=== PATIENT | male | born 1995 | race Caucasian/White ===

== ENCOUNTER → 2021-06-08 11:44 | Outpatient (CLI) | payer OTHER, SELFPAY ==
--- NOTE | 2021-06-08 | DI.RAD.S_ITS ---
PROCEDURE: XR KUB INDICATIONS: abdominal pain TECHNIQUE: One view of the abdomen acquired. COMPARISON: None. FINDINGS: Surgical changes and devices: None. Bowel: Bowel gas pattern is normal. Soft tissues: No suspicious abdominal calcifications. Visualized solid organ contours appear normal in size. Bones: No suspicious bony lesions. IMPRESSION: No source for abdominal pain identified. If pain persists with conservative management, consider CT. Dictated by: Darvin BHATIA Interpreted: Tanja Michele MD on 06/08/2021 at 12:05 Transcribed by: JIMMY on 06/08/2021 at 12:05 Approved by: Tanja Michele M.D. on 06/08/2021 at 13:09
--- NOTE | 2021-06-08 | DI.RAD.S_ITS ---
PROCEDURE: XR SHOULDER RT MIN 2V INDICATIONS: right shoulder pain TECHNIQUE: 3 views of the shoulder were acquired. COMPARISON: None. FINDINGS: Bones: No fractures or dislocations. No suspicious bony lesions. Visualized ribs appear intact. Soft tissues: No suspicious soft tissue calcifications. IMPRESSION: No definite radiographic abnormality. If pain persists with conservative management, consider cross sectional imaging such as CT or MRI for further assessment. Dictated by: Darvin Morton [facility] Interpreted: Tanja Michele MD on 06/08/2021 at 12:04 Transcribed by: JIMMY on 06/08/2021 at 12:04 Approved by: Tanja Michele M.D. on 06/08/2021 at 13:09
== END ==
PROVIDERS: Referring Provider Student in an Organized Health Care Education/Training Program; Visit Provider Student in an Organized Health Care Education/Training Program
DX: M25.511 Pain in right shoulder (principal); R10.9 Unspecified abdominal pain
CPT/HCPCS: 73030; 74018

== ENCOUNTER → 2024-01-04 07:48 | Outpatient (CLI) | payer OTHER, SELFPAY ==
--- NOTE | 2024-01-04 07:50 | DI.NM.S_ITS ---
PROCEDURE: NM EXERCISE TREADMILL NON NUC COMPARISON: None. INDICATIONS: Other forms of dyspnea FINDINGS: The patient exercised for 14 minutes and 47 seconds reaching 99% of maximum predicted heart rate. Appropriate BP response to exercise. 14.8METs, STEPHANY -3%. No angina, no ST changes, and no ectopy during exercise or recovery. IMPRESSION: Low risk, normal treadmill ECG only stress test with average exercise tolerance (14.8METs, STEPHANY -3%). Dictated by: Ivon Owen MD on 01/04/2024 at 12:44 Approved by: Ivon Owen MD on 01/04/2024 at 12:45
== END ==
PROVIDERS: PCP Registered Nurse; Referring Provider Internal Medicine; Visit Provider Internal Medicine
DX: R06.09 Other forms of dyspnea (principal)
CPT/HCPCS: 93017

== ENCOUNTER → 2024-01-14 07:46 | Outpatient (CLI) | payer OTHER, SELFPAY ==
--- NOTE | 2024-01-14 | DI.RAD.S_ITS ---
PROCEDURE: FL SHOULDER INJECTION MR/CT RT INDICATIONS: INTERNAL DERANGEMENT OF RIGHT SHOULDER COMPARISON: None. TECHNIQUE: The indications, alternatives, benefits, risks, and complications of the procedure were explained to the patient. Written informed consent was obtained and placed in the chart. The shoulder was examined fluoroscopically and a site for needle placement chosen for entry into the glenohumeral joint from an anterior approach. The skin was prepped and draped in a sterile fashion, and 1% lidocaine infiltrated from skin down to joint capsule. A spinal needle was inserted into the glenohumeral joint, and a small amount of iodinated contrast media injected to confirm intra-articular placement of the needle tip. This was followed by approximately 12 mL dilute solution of a gadolinium containing MR contrast agent. The needle was removed and a dressing was applied. The patient was given postprocedural instructions and sent to the MR suite for MR imaging. FINDINGS: A single fluoroscopic spot image demonstrates intra-articular location of injected iodinated contrast. IMPRESSION: Successful fluoroscopically guided administration of dilute Gadolinium solution into the shoulder joint for MR arthrogram. Dictated by: Aidan Martinez M.D. on 01/14/2024 at 10:37 Approved by: Aidan Martinez M.D. on 01/14/2024 at 10:38
[2024-01-14] MEDS: SODIUM CHLORIDE 0.9 % 20 ML VIAL IV (08:30)
[2024-01-14] MEDS: LIDOCAINE 1% 20 ML INJ (08:30)
--- NOTE | 2024-01-14 08:37 | DI.MRI.S_ITS ---
PROCEDURE: MR SHOULDER RT W CON INDICATIONS: INTERNAL DERANGEMENT OF RIGHT SHOULDER TECHNIQUE: After the administration of 12 mL of dilute intra-articular Gadolinium contrast, oblique coronal T1 and T2 spin echo with fat saturation, oblique sagittal T1 spin echo with and without fat saturation, oblique sagittal T2 fast spin echo with fat saturation, axial T1 spin echo with fat saturation through the shoulder. COMPARISON: [facility], CR, XR SHOULDER RT MIN 2V, 06/08/2021, 11:47. FINDINGS: Image quality: Excellent. Rotator cuff: The supraspinatus, and the infraspinatus is unremarkable. The teres minor is unremarkable. The subscapularis is unremarkable. No muscle edema or fatty atrophy. Bones and bursae: The acromioclavicular joint is unremarkable. No significant degenerative changes of the acromioclavicular joint. Type 1 acromion. There is a small subacromial enthesophyte. Mild subchondral cystic changes at the posterior aspect of the greater tuberosity, reactive. No acute fracture. No focal chondral defects of the glenohumeral joint. Capsule and soft tissues: Tear of the superior labrum. The extra-articular and intra-articular biceps tendon is unremarkable. IMPRESSION: 1. No tear of the rotator cuff tendon. 2. Superior labral tear. Dictated by: Mayelin Spann M.D. on 01/14/2024 at 11:34 Approved by: Mayelin Spann M.D. on 01/14/2024 at 11:48
== END ==
LOC: RAD 07:47
PROVIDERS: PCP Registered Nurse
DX: M24.811 Other specific joint derangements of right shoulder, not elsewhere classified (principal); M25.311 Other instability, right shoulder; S43.431A Superior glenoid labrum lesion of right shoulder, initial encounter; M25.511 Pain in right shoulder
CPT/HCPCS: 23350; 73040; 73222; A9579; Q9967